=== PATIENT | male | born 1985 | race Caucasian/White ===

== ENCOUNTER 2018-07-30 11:03 | Emergency (ER) | payer OTHER ==
[2018-07-30] MEDS ORDERED: Ibuprofen 800 MG TAB ONE (12:30)
[2018-07-30] MEDS ORDERED: Acetaminophen 325 MG Suppository ONE (12:30)
[2018-07-30] MEDS ORDERED: Diazepam 5 MG TAB ONE (12:30)
[2018-07-30] MEDS ORDERED: Acetaminophen 325 MG TAB ONE (12:31)
== END 2018-07-30 14:12 | disposition home or self-care (01) ==
LOC: ERS 11:03
DX: M54.5 Low back pain (principal); Z79.899 Other long term (current) drug therapy
CPT/HCPCS: 99283